=== PATIENT | female | born 1990 | race African-American/Black ===

== ENCOUNTER 2020-03-08 11:11 | Emergency (ER) | payer OTHER ==
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
[2020-03-08] MEDS ORDERED: ONDANSETRON 4 MG/2 ML VIAL IVPUSH ONE (11:43)
[2020-03-08] MEDS ORDERED: ACETAMINOPHEN 1000 MG/100 ML VIAL (NON FORMULARY) IVPB ONE (11:43)
[2020-03-08] MEDS ORDERED: SODIUM CHLORIDE 1,000 ML IV SCH (11:45)
[2020-03-08 12:06] VITALS: BP 159/65; PULSE 72; TEMP 98; BMI 32.5
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
[2020-03-08] MEDS ORDERED: FAMOTIDINE 20 MG/50 ML IVPB 20 MG/50 ML MG IVPB ONE ×2 (12:41→13:06)
[2020-03-08] MEDS ORDERED: METOCLOPRAMIDE HCL INJECTION 10 MG/2 ML VIAL IVPUSH ONE (12:41)
[2020-03-08 12:53] LABS: BASO % 1.1 % (0-2.0); EOS % 0.1 % (0-4.5); HEMATOCRIT 37.6 % (32.4-45.2); HEMOGLOBIN 12.5 GM/dL (10.7-15.3); LYMPH % 18.4 % (8-40); MCH 29.1 pg (25.7-33.7); MCHC 33.4 g/dl (32.0-36.0); MEAN CELL VOLUME 87.1 fl (80-96); MONO % 5.5 % (3.8-10.2); NEUT % 74.9 % (42.8-82.8); PLATELET COUNT 571 K/MM3 (134-434); RBC 4.32 M/mm3 (3.60-5.2); RDW 13.8 % (11.6-15.6)
[2020-03-08 13:00] LABS: INR 1.14 (0.83-1.09); PROTHROMBIN TIME (PATIENT) 13.5 SEC (9.7-13.0)
[2020-03-08 13:03] LABS: ACTIVATED PTT 31.2 SECONDS (25.2-36.5)
[2020-03-08] MEDS ORDERED: METOCLOPRAMIDE HCL INJECTION 10 MG/2 ML VIAL ONE (13:06)
[2020-03-08 13:34] LABS: ALBUMIN 4.2 g/dl (3.4-5.0); BILIRUBIN,TOTAL 0.5 mg/dL (0.2-1); BLOOD UREA NITROGEN 18.9 mg/dL (7-18); CALCIUM 9.9 mg/dL (8.5-10.1); CREATININE 0.8 mg/dL (0.55-1.3); POTASSIUM 3.9 mmol/L (3.5-5.1); TOT PROT 8.3 g/dl (6.4-8.2)
[2020-03-08 14:02] LABS: ANISOCYTOSIS 0; MACROCYTOSIS 0; PLATELET ESTIMATE INCREASED
[2020-03-08] MEDS ORDERED: MAG HYDROX/AL HYDROX/SIMETH 30 ML UNIT-DOSE CUP PO ONE (14:57)
[2020-03-08] MEDS ORDERED: MAG HYDROX/AL HYDROX/SIMETH 30 ML UNIT-DOSE CUP ONE (16:05)
--- NOTE | 2020-03-09 13:30 | EKG ---
Test Reason : Blood Pressure : / mmHG Vent. Rate : 058 BPM Atrial Rate : 058 BPM P-R Int : 132 ms QRS Dur : 088 ms QT Int : 432 ms P-R-T Axes : 031 040 032 degrees QTc Int : 424 ms POOR DATA QUALITY, INTERPRETATION MAY BE ADVERSELY AFFECTED SINUS BRADYCARDIA WITH SINUS ARRHYTHMIA OTHERWISE NORMAL ECG Confirmed by MD RONI, STEFAN ([id number]) on 03/09/2020 1:30:39 PM Referred By: Confirmed By:STEFAN TAMAYO MD
== END 2020-03-08 18:22 | disposition home or self-care (01) ==
LOC: JER 11:11
PROC: 3E0333Z Introduction of Anti-inflammatory into Peripheral Vein, Percutaneous Approach (ICD-10-PCS; principal; 2020-03-08)
PROC: 3E033GC Introduction of Other Therapeutic Substance into Peripheral Vein, Percutaneous Approach (ICD-10-PCS; 2020-03-08)
DX: R11.2 Nausea with vomiting, unspecified (principal)
CPT/HCPCS: 36415; 74177-TC; 80053; 83690; 84703; 85025; 85610; 85730; 86850; 86900; 86901; 93005; 93010; 99285-25; J0131; Q9967